=== PATIENT | male | born 1970 | race Caucasian/White ===

== ENCOUNTER 2024-05-06 15:16 | Observation (INO) ==
[2024-05-06 17:18] VITALS: BMI 53.6
[2024-05-06 17:31] LABS: BASOPHILS # (AUTO) 0.1 X10^3/uL (0.0-0.1); BASOPHILS % (AUTO) 1.4 % (0.2-1.0); EOSINOPHILS # (AUTO) 0.1 x10^3/uL (0.0-0.2); EOSINOPHILS % (AUTO) 0.7 % (0.9-2.9); HEMATOCRIT 39.4 % (42.0-54.0); HEMOGLOBIN 13.4 g/dL (13.5-18.0); LYMPHOCYTES # (AUTO) 2.4 X10^3/uL (1.3-2.9); LYMPHOCYTES % (AUTO) 25.9 % (21.0-51.0); MEAN CORPUSCULAR HEMOGLOBIN 35.1 pg (27.0-34.0); MEAN CORPUSCULAR HGB CONC 33.9 g/dL (33.0-35.0); MEAN CORPUSCULAR VOLUME 103.5 fL (80.0-100.0); MEAN PLATELET VOLUME 9.9 fL (7.4-11.0); MONOCYTES # (AUTO) 1.1 x10^3/uL (0.3-0.8); MONOCYTES % (AUTO) 12.3 % (0.0-13.0); NEUTROPHILS # (AUTO) 5.5 x10^3/uL (2.2-4.8); NEUTROPHILS % (AUTO) 59.7 % (42.0-75.0); PLATELET COUNT 202 X10^3/uL (150.0-450.0); RED BLOOD COUNT 3.81 X10^6/uL (4.7-6.0); RED CELL DISTRIBUTION WIDTH 15.4 % (11.6-16.5); WHITE BLOOD COUNT 9.2 X10^3/uL (3.6-10.0)
[2024-05-06 17:32] LABS: ALANINE AMINOTRANSFERASE 34 Units/L (12-78); ALBUMIN 2.4 g/dL (3.4-5.0); ALKALINE PHOSPHATASE 122 Units/L (46-116); ASPARTATE AMINO TRANSFERASE 47 Units/L (15-37); BLOOD UREA NITROGEN 11 mg/dL (7-18); CARBON DIOXIDE 26.3 mmol/L (21-32); CHLORIDE 107 mmol/L (98-107); COR NA(FOR HYPERGLY) 143 mmol/L (136-145); CREATININE 1.42 mg/dL (0.70-1.30); GLUCOSE 121 mg/dL (65-99); SODIUM 142 mmol/L (136-145); TOTAL PROTEIN 6.5 g/dL (6.4-8.2); eGFR NON BLACK RACES 56 (>60)
[2024-05-06] MEDS: LR 1,000 ML IV 1,000 ML IV SCH (17:34)
[2024-05-06 17:35] LABS: CALCIUM 5.7 mg/dL (8.5-10.1)
--- NOTE | 2024-05-06 22:49 | EKG ---
Test Reason : preop Blood Pressure : */* mmHG Vent. Rate : 80 BPM Atrial Rate : 80 BPM P-R Int : 142 ms QRS Dur : 74 ms QT Int : 418 ms P-R-T Axes : 59 77 80 degrees QTc Int : 482 ms Normal sinus rhythm Low voltage QRS Prolonged QT Abnormal ECG No previous ECGs available Confirmed by Evan Jha MD ([id number]) on 05/07/2024 6:37:25 AM Referred By: Confirmed By: Evan Jha MD
--- NOTE | 2024-05-07 07:18 | DR.CONSULT ---
CONSULT Consultation for Day of: Date: 05/07/24 Chief Complaint Chief Complaint: Lacerations, Left toes Allergies Allergies Allergy/AdvReac Type Severity Reaction Status Date / Time No Known Drug Allergies Allergy Verified 05/06/24 17:51 History of Present Illness History of Present Illness: This is a 53 year old non diabetic patient who has a history of partial 5th metatarsal resection to left foot. He presented to Dr. Friend's office yesterday after lacerating the plantar aspect of the digits 2, 3, and 4. His foot was very violaceous and cold presenting as a vasospastic response to the lacerations and clinically appearing he had no blood flow to the left foot digit lacerations. CFT was slightly decreased. Ther was concern for arterial issue and Dr. Vergara was informed who admitted the patient. There was also some concern for infection and possible osteomyelitis. An MRI was ordered but has not been obtained this AM as it needs precerted. His WBC is 9.2. He has not been started on IV antibiotics. Past Surgical History Surgical History: Ortho Surgery Family History Family Medical History: Cancer, [place] and Hypertension Social History Does patient currently use any type of tobacco product: Yes Type of Tobacco Use: Cigarettes How many years tobacco product used: 20 Does any household member use tobacco: No Alcohol Use: Occasionally Drug Use: None Medications Home Medications: No Known Drug Allergies Allergy (Verified 05/06/24 17:51) CONTINUE taking the following medications losartan 100 mg tablet 100 mg PO DAILY 05/06/24 [History] Review of Systems Constitutional: See HPI Physical Exam Vital Signs: Vital Signs Temperature 97.8 F Temperature 97.8 F Pulse Rate [Brachial] 86 Pulse Rate [Brachial] 84 Respiratory Rate 20 Respiratory Rate 21 Blood Pressure [Right Arm] 144/71 Blood Pressure [Right Arm] 126/63 O2 Sat by Pulse Oximetry 97 O2 Sat by Pulse Oximetry 96 Cardiovascular: Other (Left foot: DP and PT pulses are 1/4. Skin is atrophic. No hair growth present. ) Skin: Wound (Laceration down to tendon on plantar aspect of digits 2, 3, and 4 of the left foot. There is a small area of fibrotic appear tissue that appears necrotic in each digit. The CFT appears to be back to normal when compared to clinic notes from yesterday. The violaceous color of the foot has decreased.) Musculoskeletal: Foot (Left foot: patient is slightly able to flex digits 2, 3, and 4 on the left. History of amputation of the 5th metatarsal on the left foot. ) Plan (1) Osteomyelitis of ankle or foot, left, acute: Status: Acute Plan: - Patient has PVD and is being treated by Jai. There is plan for intervention tomorrow. - He is currently NPO. - IV antibiotics have not been started. Patient is stable enough, do not start antibiotics. Possible surgery this PM consisting of washout with closure vs amputation. - This will be dependent on the MRI read which is currently in the process of being pre-certified and then will be obtained. - Discussed with patient this morning about his vascular disease and the intervention with Jai tomorrow. Discussed surgery later today consisting of washout and closure vs amputation which is dependent on MRI read. - He was understanding and in agreement.
--- NOTE | 2024-05-07 07:48 | RAD ---
EXAM: Portable chest HISTORY: Preop vascular surgery COMPARISON: None available FINDINGS: Heart is enlarged. No congestive heart failure is noted. No acute alveolar infiltrates or pleural effusions are identified. Bony thorax is unremarkable. IMPRESSION: Cardiomegaly without congestive heart failure No acute infiltrates THIS IS AN ELECTRONICALLY VERIFIED FINAL REPORT 05/07/2024 7:45 AM - Electronically signed by Raul Porter MD
--- NOTE | 2024-05-07 08:13 | CT ---
EXAM:CTA AORTA WITH RUNOFFHISTORY:pre op vascular surgery ;COMPARISON:NoneTECHNIQUE:Multiple CT axial images of the abdomen pelvis and lower extremity runoff were obtained before and after using IV contrast. 3D reconstructions utilizing axial MIPS imaging was performed and reviewed. Dose reduction techniques including Automated Exposure Control (AEC) and adjustment of mA and kV were utilized.Stenoses are measured using NASCET criteria. Normal is no stenosis. Mild is less than 50% stenosis. Moderate is 50-69% stenosis. Severe is 70% to 99% stenosis. Total occlusion is no detectable patent lumen.FINDINGS:Without contrast: Very minimal calcified atherosclerotic plaque is present in the distal aorta and iliac arteries. Diffuse decreased density of the liver is compatible with hepatic steatosis. Fixation hardware is present in the left lower extremity.With contrast: The aorta has a normal caliber with no aneurysm, dissection, or stenosis. All 3 mesenteric vessels are patent. There is a single patent artery to each kidney. Common iliac and external iliac arteries are widely patent. Both internal iliac arteries are patent.Left leg: There is no significant femoropopliteal artery occlusion. There is a high origin of the anterior tibial artery from the popliteal artery above the knee joint surface. Anterior tibial and posterior tibial arteries extend to the foot. Peroneal artery is never identified.Right leg: Anterior tibial and posterior tibial arteries are patent extending into the foot. The peroneal artery is very tiny and I do not see it below the proximal calf.Body: Lung bases are clear. The liver is large measuring over 26 cm. The spleen is large measuring 14.6 cm. Adrenal glands, pancreas, kidneys, urinary bladder, and bowel loops are unremarkable. Probable postsurgical scarring in the deep subcutaneous tissue of the anterior abdominal wall.IMPRESSION:1. Mild atherosclerosis without significant occlusion2. Two-vessel runoff to each foot3. High origin left anterior tibial artery4. Hepatomegaly with steatosis5. SplenomegalyTHIS IS AN ELECTRONICALLY VERIFIED FINAL REPORT05/07/2024 8:10 AM - Electronically signed by Justin Burgess MD
[2024-05-07] MEDS: OMNIPAQUE 350 mg/mL 50 mL BTL 50 ML ONE (09:37)
[2024-05-07] MEDS: OMNIPAQUE 350 mg/mL 100 mL BTL 100 ML ONE (09:37)
[2024-05-07] MEDS: NS 250 ML IV 25 ML IV PRN (10:10)
[2024-05-07] MEDS: ZOSYN VIAL 3.375 GRAMS 3.375 G in NS 100 ML IV 100 ML IV SCH (10:10)
[2024-05-07] MEDS: XYLOCAINE 1% and EPINEPHRINE 1:100,000 ONE (12:59)
--- NOTE | 2024-05-07 13:45 | DR.H&P ---
H&P History & Physical for Day of: H&P Date: 05/06/24 Chief Complaint Chief Complaint: Painful left foot after injury with redness and swelling History of Present Illness History of Present Illness: Morbidly obese 53-year-old male with presentation to Dr. Friend of podiatry with a laceration type wounds to the base of the plantar aspect of the left third and fourth toes. Fifth toe on that side has been amputated. Patient has significant tobacco abuse history greater than 1 pack of cigarettes per day for over 30 years. Patient also with history of significant injury to the left leg in the past requiring open duction internal fixation. Past Medical History Past Medical History: GERD and Hypertension Past Surgical History Surgical History: Ortho Surgery (Open reduction internal fixation of the left femur in the past) Family History Family Medical History: Cancer, [place] and Hypertension Social History Does patient currently use any type of tobacco product: Yes Type of Tobacco Use: Cigarettes How many years tobacco product used: 35 Does any household member use tobacco: No Alcohol Use: DAILY (Nearly 1 pint of alcohol per day) Drug Use: None Medications Home Medications: Home Medications Medication Instructions Recorded Confirmed Type omeprazole 20 mg tablet,delayed 20 mg PO DAILY 05/28/19 05/06/24 History release pregabalin 300 mg capsule 300 mg PO BID 05/28/19 05/06/24 History losartan 100 mg tablet 100 mg PO DAILY 05/06/24 05/06/24 History Allergies Allergies Allergy/AdvReac Type Severity Reaction Status Date / Time No Known Drug Allergies Allergy Verified 05/06/24 17:51 Labs 05/06/24 17:10 05/06/24 17:10 Labs: Laboratory WBC 9.2 X10^3/uL (3.6-10.0) 05/06/24 17:10 RBC 3.81 X10^6/uL (4.7-6.0) L 05/06/24 17:10 Hgb 13.4 g/dL (13.5-18.0) L 05/06/24 17:10 Hct 39.4 % (42.0-54.0) L 05/06/24 17:10 MCV 103.5 fL (80.0-100.0) H 05/06/24 17:10 MCH 35.1 pg (27.0-34.0) H 05/06/24 17:10 MCHC 33.9 g/dL (33.0-35.0) 05/06/24 17:10 RDW 15.4 % (11.6-16.5) 05/06/24 17:10 Plt Count 202 X10^3/uL (150.0-450.0) 05/06/24 17:10 MPV 9.9 fL (7.4-11.0) 05/06/24 17:10 Neut % (Auto) 59.7 % (42.0-75.0) 05/06/24 17:10 Lymph % (Auto) 25.9 % (21.0-51.0) 05/06/24 17:10 [place] % (Auto) 12.3 % (0.0-13.0) 05/06/24 17:10 Eos % (Auto) 0.7 % (0.9-2.9) L 05/06/24 17:10 Baso % (Auto) 1.4 % (0.2-1.0) H 05/06/24 17:10 Neut # (Auto) 5.5 x10^3/uL (2.2-4.8) H 05/06/24 17:10 Lymph # (Auto) 2.4 X10^3/uL (1.3-2.9) 05/06/24 17:10 [place] # (Auto) 1.1 x10^3/uL (0.3-0.8) H 05/06/24 17:10 Eos # (Auto) 0.1 x10^3/uL (0.0-0.2) 05/06/24 17:10 Baso # (Auto) 0.1 X10^3/uL (0.0-0.1) 05/06/24 17:10 Absolute Nucleated RBC 0.3 /100WBC 05/06/24 17:10 Sodium 142 mmol/L (136-145) 05/06/24 17:10 Corrected Sodium 143 mmol/L (136-145) 05/06/24 17:10 Potassium 4.0 mmol/L (3.5-5.1) 05/06/24 17:10 Chloride 107 mmol/L (98-107) 05/06/24 17:10 Carbon Dioxide 26.3 mmol/L (21-32) 05/06/24 17:10 BUN 11 mg/dL (7-18) 05/06/24 17:10 Creatinine 1.42 mg/dL (0.70-1.30) H 05/06/24 17:10 Est GFR (MDRD) Af Amer > 60 (>60) 05/06/24 17:10 Est GFR (MDRD) Non-Af 56 (>60) L 05/06/24 17:10 Glucose 121 mg/dL (65-99) H 05/06/24 17:10 Calcium 5.7 mg/dL (8.5-10.1) L* 05/06/24 17:10 Corrected Calcium 7.0 mg/dL (8.5-10.1) L 05/06/24 17:10 Total Bilirubin 0.70 mg/dL (0.2-1.0) 05/06/24 17:10 AST 47 Units/L (15-37) H 05/06/24 17:10 ALT 34 Units/L (12-78) 05/06/24 17:10 Alkaline Phosphatase 122 Units/L (46-116) H 05/06/24 17:10 Total Protein 6.5 g/dL (6.4-8.2) 05/06/24 17:10 Albumin 2.4 g/dL (3.4-5.0) L 05/06/24 17:10 Globulin 4.1 g/dL (2.5-4.5) 05/06/24 17:10 Albumin/Globulin Ratio 0.6 Ratio (1.1-2.1) L 05/06/24 17:10 Review of Systems Constitutional: See HPI Eyes: No Symptoms Reported ENT: No Symptoms Reported Respiratory: No Symptoms Reported Cardiovascular: See HPI Gastrointestinal: No Symptoms Reported Genitourinary: No Symptoms Reported Musculoskeletal: See HPI Skin: See HPI Neurological: No Symptoms Reported Physical Exam Vital Signs: Vital Signs Temperature 98.1 F Temperature 98.3 F Pulse Rate [Brachial] 74 Pulse Rate [Brachial] 76 Respiratory Rate 20 Respiratory Rate 20 Blood Pressure [Right Arm] 131/73 Blood Pressure [Right Arm] 127/67 O2 Sat by Pulse Oximetry 95 O2 Sat by Pulse Oximetry 95 Oriented: Normal, Time, Person and Place Eyes: Normal Ear: Normal Nose: Normal Throat: Normal Respiratory: Clear Throughout Cardiovascular: Normal : Normal Auscultation: Bowel Sounds: Normal Palpation: Normal Tenderness: Normal Skin: Other (Laceration type wounds to the base of the plantar aspect of the third and fourth toes with surrounding cellulitis) Musculoskeletal: Left (Left leg history of open reduction internal fixation.) Assessment/Plan (1) Osteomyelitis of ankle or foot, left, acute: Status: Acute Plan: Dr. Friend is planning MRI of the left foot, IV antibiotics (2) Atherosclerosis of [place] arteries of extremities with rest pain, left leg: Status: Acute Plan: CTA and runoff (3) Essential (primary) hypertension: Status: Acute Plan: home medications (4) Acid reflux: Status: Acute Plan: home medications (5) Tobacco abuse: Status: Acute Plan: nicotine patches (6) Alcohol abuse: Status: Acute Plan: CIQA protocol
[2024-05-07] MEDS: BETADINE SOLN ONE (14:45)
[2024-05-07] MEDS: LR 1,000 ML IV 1,000 ML IV ONE (14:45)
[2024-05-07] MEDS: MARCAINE 0.25% INJ ONE (14:53)
--- NOTE | 2024-05-07 16:36 | NOTE.SOAP ---
Soap Note Note for Day of Date of Exam: 05/07/24 Subjective Data Subjective Data: Please history physical details. Patient with cellulitis possible osteomyelitis of the left foot. Had CT angiogram which showed no significant stenosis of the major vessels. Peroneal vessels are poor bilaterally but has two-vessel runoff to each foot. No obvious arterial intervention is necessary. MRI is performed by Dr. Brambila and they will address his foot accordingly. Objective Data Temperature: 98.3 F Pulse Rate: 84 Respiratory Rate: 16 Blood Pressure: 150/75 O2 Sat by Pulse Oximetry: 98 Objective Data: as above Assessment Assessment: Cellulitis, possible osteomyelitis left foot. No obvious arterial intervention required. Plan Plan: Dr. Friend to debride the wound in the operating room today
[2024-05-07] MEDS: DILAUDID INJ IVP PRN (20:04)
[2024-05-08 08:27] VITALS: BP 137/61; PULSE 90; RESP 18; TEMP 98.6; O2SAT 96
--- NOTE | 2024-05-08 10:21 | W.DIS.FURT ---
Summary of Discharge Discharge Summary of Date Date of Exam: 05/08/24 Admission Date Date of Admission: 05/06/24 Admission Diagnosis Hospital Course: 53 yo male, diabetic , heavy smoker with pain and wounds to left plantar foot with question of ischemia. Admitted , placed on IV antibiotics . Could not palpate arteries left ankle due to swelling and chronic venous stasis. CTA showed no obvious arterial stenosis. Dr. Friend debrided the left foot and he will be discharged home on PO antiobiotics and Percocet in addition to his usual pain medications. F/U me an d Dr Friend 1 week. Vital Signs: Vital Signs (72 hours) 05/07/24 16:36 05/06/24 16:45 05/06/24 17:55 Temperature 98.3 F 98.1 F Pulse Rate 84 Pulse Rate [Brachial] 93 H Respiratory Rate 16 22 Blood Pressure 150/75 Blood Pressure [Right Arm] 131/59 O2 Sat by Pulse Oximetry 98 94 L Oxygen Delivery Method Room Air Room Air Oxygen Flow Rate 2 FIO2% 28 05/06/24 20:00 05/07/24 00:00 05/06/24 20:25 Temperature 97.8 F 97.8 F Pulse Rate Pulse Rate [Brachial] 89 84 Respiratory Rate 20 21 Blood Pressure Blood Pressure [Right Arm] 116/62 126/63 O2 Sat by Pulse Oximetry 99 96 Oxygen Delivery Method Room Air CPAP Nasal Cannula Oxygen Flow Rate 2 FIO2% 28 05/07/24 04:00 05/06/24 22:00 05/07/24 07:57 Temperature 97.8 F 98.3 F Pulse Rate Pulse Rate [Brachial] 86 76 Respiratory Rate 20 20 Blood Pressure Blood Pressure [Right Arm] 144/71 127/67 O2 Sat by Pulse Oximetry 97 95 Oxygen Delivery Method CPAP Room Air Oxygen Flow Rate FIO2% 281 05/07/24 12:00 05/07/24 14:48 05/07/24 14:53 Temperature 98.1 F Pulse Rate 81 78 Pulse Rate [Brachial] 74 Respiratory Rate 20 16 16 Blood Pressure 120/60 157/90 Blood Pressure [Right Arm] 131/73 O2 Sat by Pulse Oximetry 95 98 98 Oxygen Delivery Method Room Air Room Air Room Air Oxygen Flow Rate FIO2% 05/07/24 14:58 05/07/24 15:11 05/07/24 15:26 Temperature 97.5 F L 97.5 F L Pulse Rate 84 Pulse Rate [Brachial] 80 90 Respiratory Rate 16 20 20 Blood Pressure 150/75 Blood Pressure [Right Arm] 128/95 141/85 O2 Sat by Pulse Oximetry 98 97 99 Oxygen Delivery Method Room Air Oxygen Flow Rate FIO2% 05/07/24 15:41 05/07/24 15:56 05/07/24 16:11 Temperature 97.7 F 97.5 F L 97.7 F Pulse Rate Pulse Rate [Brachial] 88 88 85 Respiratory Rate 18 18 20 Blood Pressure Blood Pressure [Right Arm] 139/87 140/85 129/89 O2 Sat by Pulse Oximetry 98 99 100 Oxygen Delivery Method Oxygen Flow Rate FIO2% 05/07/24 20:04 05/07/24 20:00 05/07/24 20:34 Temperature 97.9 F Pulse Rate Pulse Rate [Brachial] 87 Respiratory Rate 18 22 18 Blood Pressure Blood Pressure [Right Arm] 124/75 O2 Sat by Pulse Oximetry 95 Oxygen Delivery Method Room Air Oxygen Flow Rate FIO2% 05/07/24 20:40 05/08/24 00:00 05/08/24 04:00 Temperature 98.1 F 97.8 F Pulse Rate Pulse Rate [Brachial] 82 84 Respiratory Rate 18 22 Blood Pressure Blood Pressure [Right Arm] 106/55 108/55 O2 Sat by Pulse Oximetry 97 97 Oxygen Delivery Method Nasal Cannula Room Air Room Air Oxygen Flow Rate 2 FIO2% 28 05/08/24 08:00 05/08/24 09:12 05/08/24 07:00 Temperature 98.6 F Pulse Rate Pulse Rate [Brachial] 90 Respiratory Rate 18 18 Blood Pressure Blood Pressure [Right Arm] 137/61 O2 Sat by Pulse Oximetry 96 Oxygen Delivery Method Room Air Room Air Oxygen Flow Rate FIO2% Labs: Laboratory Last Values WBC 9.2 X10^3/uL (3.6-10.0) 05/06/24 17:10 RBC 3.81 X10^6/uL (4.7-6.0) L 05/06/24 17:10 Hgb 13.4 g/dL (13.5-18.0) L 05/06/24 17:10 Hct 39.4 % (42.0-54.0) L 05/06/24 17:10 MCV 103.5 fL (80.0-100.0) H 05/06/24 17:10 MCH 35.1 pg (27.0-34.0) H 05/06/24 17:10 MCHC 33.9 g/dL (33.0-35.0) 05/06/24 17:10 RDW 15.4 % (11.6-16.5) 05/06/24 17:10 Plt Count 202 X10^3/uL (150.0-450.0) 05/06/24 17:10 MPV 9.9 fL (7.4-11.0) 05/06/24 17:10 Neut % (Auto) 59.7 % (42.0-75.0) 05/06/24 17:10 Lymph % (Auto) 25.9 % (21.0-51.0) 05/06/24 17:10 [place] % (Auto) 12.3 % (0.0-13.0) 05/06/24 17:10 Eos % (Auto) 0.7 % (0.9-2.9) L 05/06/24 17:10 Baso % (Auto) 1.4 % (0.2-1.0) H 05/06/24 17:10 Neut # (Auto) 5.5 x10^3/uL (2.2-4.8) H 05/06/24 17:10 Lymph # (Auto) 2.4 X10^3/uL (1.3-2.9) 05/06/24 17:10 [place] # (Auto) 1.1 x10^3/uL (0.3-0.8) H 05/06/24 17:10 Eos # (Auto) 0.1 x10^3/uL (0.0-0.2) 05/06/24 17:10 Baso # (Auto) 0.1 X10^3/uL (0.0-0.1) 05/06/24 17:10 Absolute Nucleated RBC 0.3 /100WBC 05/06/24 17:10 Sodium 142 mmol/L (136-145) 05/06/24 17:10 Corrected Sodium 143 mmol/L (136-145) 05/06/24 17:10 Potassium 4.0 mmol/L (3.5-5.1) 05/06/24 17:10 Chloride 107 mmol/L (98-107) 05/06/24 17:10 Carbon Dioxide 26.3 mmol/L (21-32) 05/06/24 17:10 BUN 11 mg/dL (7-18) 05/06/24 17:10 Creatinine 1.42 mg/dL (0.70-1.30) H 05/06/24 17:10 Est GFR (MDRD) Af Amer > 60 (>60) 05/06/24 17:10 Est GFR (MDRD) Non-Af 56 (>60) L 05/06/24 17:10 Glucose 121 mg/dL (65-99) H 05/06/24 17:10 Calcium 5.7 mg/dL (8.5-10.1) L* 05/06/24 17:10 Corrected Calcium 7.0 mg/dL (8.5-10.1) L 05/06/24 17:10 Total Bilirubin 0.70 mg/dL (0.2-1.0) 05/06/24 17:10 AST 47 Units/L (15-37) H 05/06/24 17:10 ALT 34 Units/L (12-78) 05/06/24 17:10 Alkaline Phosphatase 122 Units/L (46-116) H 05/06/24 17:10 Total Protein 6.5 g/dL (6.4-8.2) 05/06/24 17:10 Albumin 2.4 g/dL (3.4-5.0) L 05/06/24 17:10 Globulin 4.1 g/dL (2.5-4.5) 05/06/24 17:10 Albumin/Globulin Ratio 0.6 Ratio (1.1-2.1) L 05/06/24 17:10 Reason For Visit: ISHEMIC LEFT LEG Discharge Date Discharge Date: 05/08/24 Discharge Diagnosis All Active Problems (Updated 05/07/24 @ 13:42 by Rogelio Vergara) Alcohol abuse (Acute) Tobacco abuse (Acute) Acid reflux (Acute) Essential (primary) hypertension (Acute) Atherosclerosis of [place] arteries of extremities with rest pain, left leg (Acu te) Osteomyelitis of ankle or foot, left, acute (Acute) Plan of Treatment: Continue with present treatment and follow up plan. Pt is to keep follow up appointment as instructed and take medications as ordered. Discharge Medications Discharge Medications: No Known Drug Allergies Allergy (Verified 05/06/24 17:51) CONTINUE taking the following medications losartan 100 mg tablet 100 mg PO DAILY 05/06/24 [History] Discharge Plan Discharge Plan Hospital Course: 53 yo male, diabetic , heavy smoker with pain and wounds to left plantar foot with question of ischemia. Admitted , placed on IV antibiotics . Could not palpate arteries left ankle due to swelling and chronic venous stasis. CTA showed no obvious arterial stenosis. Dr. Friend debrided the left foot and he will be discharged home on PO antiobiotics and Percocet in addition to his usual pain medications. F/U me an d Dr Friend 1 week. Patient Disposition: HOME, SELF-CARE Condition: Stable Health Concerns: Post Hospitalization: new medications and changes needed to prevent readmission or further decline. Pt educated and given instructions on all concerns. Plan of Treatment: Continue with present treatment and follow up plan. Pt is to keep follow up appointment as instructed and take medications as ordered. Prescription drug monitoring program results: PDMP reviewed and no concerns identified Prescriptions: New clindamycin HCl 150 mg capsule 150 mg PO TID Qty: 30 0RF oxycodone-acetaminophen [Percocet] 5-325 mg tablet 1 tab PO Q6H MDD 4 PRNQty: 30 0RF Continued losartan 100 mg Tablet 100 mg PO DAILY pregabalin 300 mg Capsule 300 mg PO BID omeprazole 20 mg Tablet,Delayed Release (Dr/Ec) 20 mg PO DAILY Orders to Discharge Patient Discharge Orders: Discharge (Routine); Ordered 05/08/24 Ordered By: Rogelio Vergara Follow ups/Referrals Follow ups/Referrals: CB ESPINOZA [Primary Care Provider] - 1 WEEK Instructions Stand Alone Forms: Excuse From Work or School, Find Help Web Site, Post Hospital Follow Up Care
--- NOTE | 2024-05-14 09:00 | MRI ---
EXAM:MRI left foot without IV contrastHISTORY:critical ischemia left foot. cut under toes of left foot;COMPARISON:CTA runoff dated 05/06/2024TECHNIQUE:Multi planar MRI series obtained of the left foot without IV contrast.FINDINGS:Toes and the distal foot are partially obscured by external artifact.MUSCLES, TENDONS, AND SOFT TISSUES:Diffuse foot muscle atrophy. No evidence of abscess or fluid collection.BONES/JOINTS:Postsurgical changes from prior partial 4th ray amputation through the mid 4th metatarsal and 5th ray amputation at the 5th tarsometatarsal joint with surrounding susceptibility. No focal abnormal marrow signal or evidence of osteomyelitis. Advanced hindfoot and ankle neuropathic arthropathy with acute to subacute mildly displaced medial navicular fracture. Moderate to severe 1st metatarsophalangeal and interphalangeal osteoarthritis.IMPRESSION:1. Technically difficult study due to external artifact. No evidence of osteomyelitis. Postsurgical changes from prior partial 4th and 5th ray amputation.2. Advanced ankle and hindfoot neuropathic arthropathy with acute to subacute mildly displaced navicular fracture.THIS IS AN ELECTRONICALLY VERIFIED FINAL REPORT05/07/2024 3:45 PM - Electronically signed by Nic Rasheed MD
== END 2024-05-08 11:00 | disposition home or self-care (01) ==
LOC: OBS → MED/SURG
PROVIDERS: ADMIT Surgery; ATTEND Surgery
PROC: DEBRIDE (2024-05-07 15:35)
DX: S91.115A Laceration without foreign body of left lesser toe(s) without damage to nail, initial encounter; X58.XXXA Exposure to other specified factors, initial encounter; E66.01 Morbid (severe) obesity due to excess calories; Z01.810 Encounter for preprocedural cardiovascular examination; K21.9 Gastro-esophageal reflux disease without esophagitis; M86.172 Other acute osteomyelitis, left ankle and foot; R16.2 Hepatomegaly with splenomegaly, not elsewhere classified; E11.65 Type 2 diabetes mellitus with hyperglycemia; I70.222 Atherosclerosis of native arteries of extremities with rest pain, left leg; M25.872 Other specified joint disorders, left ankle and foot; Z89.422 Acquired absence of other left toe(s); L03.032 Cellulitis of left toe; I10 Essential (primary) hypertension; Z68.43 Body mass index [BMI] 50.0-59.9, adult; F10.10 Alcohol abuse, uncomplicated; Z72.0 Tobacco use; E11.40 Type 2 diabetes mellitus with diabetic neuropathy, unspecified; B95.1 Streptococcus, group B, as the cause of diseases classified elsewhere; R94.31 Abnormal electrocardiogram [ECG] [EKG]

== ENCOUNTER 2024-09-10 11:15 | Observation (INO) ==
[2024-09-10] MEDS: NOZIN NASAL SANITIZER TP ONE (11:29)
[2024-09-10] MEDS: LR 1,000 ML IV 1,000 ML IV ONE ×2 (11:31→16:16)
[2024-09-10 12:06] VITALS: BMI 54.9
[2024-09-10] MEDS: LR IV PRN (13:00)
[2024-09-10] MEDS: BYFAVO INJ IVP ONE (13:05)
[2024-09-10] MEDS: NAROPIN 0.75% EPI ONE (13:05)
[2024-09-10] MEDS: FENTANYL VIAL INJ 100 mcg ONE ×2 (13:16→15:43)
[2024-09-10] MEDS: DIPRIVAN VIAL 20 ML ONE ×5 (13:17→16:33)
[2024-09-10] MEDS: DECADRON INJ ONE (14:26)
[2024-09-10] MEDS: ZOFRAN INJ 4 MG VIAL ONE ×2 (14:26→16:25)
[2024-09-10] MEDS: REGLAN INJ 10 MG VIAL ONE (14:26)
[2024-09-10] MEDS: PEPCID 20 MG VIAL ONE (14:27)
[2024-09-10] MEDS: NS 100 ML IV 100 ML ONE (14:30)
[2024-09-10] MEDS: ANCEF VIAL 1 GRAM ONE (14:30)
[2024-09-10] MEDS ORDERED: ULTANE GAS IN ONE (14:34)
[2024-09-10] MEDS ORDERED: KETAMINE HCL ONE (14:34)
[2024-09-10] MEDS: ANCEF VIAL 1 GRAM IV PRN (14:34)
[2024-09-10] MEDS ORDERED: XYLOCAINE 2 % (PLAIN) ONE (14:34)
[2024-09-10] MEDS: PEPCID 20 MG VIAL IVP PRN (14:37)
[2024-09-10] MEDS: REGLAN INJ 10 MG VIAL IVP PRN (14:39)
[2024-09-10] MEDS: XYLOCAINE 2 % (PLAIN) INJ PRN (14:41)
[2024-09-10] MEDS: PRECEDEX INJ VIAL IVP PRN (14:42)
[2024-09-10] MEDS: MARCAINE 0.25% INJ ONE (14:54)
[2024-09-10] MEDS: OFIRMEV IV 1000 MG VIAL 1,000 MG/100 ML VIAL IV ONE (14:54)
[2024-09-10] MEDS: DECADRON INJ IVP PRN (14:55)
[2024-09-10] MEDS: OFIRMEV IV 1000 MG VIAL 1,000 MG/100 ML VIAL IV PRN (14:57)
[2024-09-10] MEDS: BYFAVO INJ IVP PRN (15:02)
[2024-09-10] MEDS: EPHEDRINE SULFATE INJ ONE (15:36)
[2024-09-10] MEDS: EPHEDRINE SULFATE INJ IVP PRN (15:40)
[2024-09-10] MEDS: KETAMINE HCL IV PRN (15:42)
[2024-09-10] MEDS: FENTANYL VIAL INJ 100 mcg IVP PRN (16:13)
[2024-09-10] MEDS: DILAUDID INJ ONE (16:20)
[2024-09-10] MEDS: ZOFRAN INJ 4 MG VIAL IVP PRN (16:31)
[2024-09-10] MEDS: DILAUDID INJ IVP PRN (16:41)
[2024-09-10] MEDS ORDERED: TYLENOL 325 MG TAB PO PRN (17:14)
[2024-09-10] MEDS ORDERED: ZOFRAN INJ 4 MG VIAL IVP PRN (17:14)
[2024-09-10] MEDS: NS 1,000 ML IV 1,000 ML IV SCH (18:22)
[2024-09-10] MEDS: COLACE CAP 100 MG PO SCH (21:29)
--- NOTE | 2024-09-11 07:08 | NOTE.SOAP ---
Soap Note Note for Day of Date of Exam: 09/11/24 Subjective Data Subjective Data: POD#1 tibia calcaneal fusion, left. Denies any nausea, vomiting, fevers, chills, shortness of breath, chest pain, or profuse sweating. denies any major pain in the left leg. Objective Data Objective Data: Left Lower Extremity Exam: Dressing taken down. Examined incisions no sign of hematoma underneath any incision. Sutures in place. No signs of arterial bleed either from the dorsal anterolateral incision. Redressed with 4x4s, ABD, Webroll, Splint, HERMAN. Assessment Assessment: POD#1 Tibiacalcaneal fusion, left Plan Plan: - NWB to LLE. - Rx in chart. - Labs are stable. VSS. - He is planning on going to [place] waiting on placement for that. - Keep dressing clean, dry, and intact. - We will change dressing again when at [facility].
[2024-09-11] MEDS: LOVENOX INJ 40 MG SYR SC SCH (08:05)
[2024-09-11] MEDS: PERCOCET TAB 5/325 MG PO PRN (08:10)
[2024-09-11 10:17] LABS: BLOOD UREA NITROGEN 16 mg/dL (7-18); CALCIUM 9.1 mg/dL (8.5-10.1); CARBON DIOXIDE 29.3 mmol/L (21-32); CHLORIDE 103 mmol/L (98-107); COR NA(FOR HYPERGLY) 142 mmol/L (136-145); GLUCOSE 180 mg/dL (65-99); POTASSIUM 3.8 mmol/L (3.5-5.1); SODIUM 140 mmol/L (136-145); eGFR NON BLACK RACES > 60 (>60)
[2024-09-11] MEDS ORDERED: VITAMIN D (1.25MG) PO SCH (10:30)
[2024-09-11] MEDS: PriLOSEC PO SCH (11:01)
[2024-09-11] MEDS: BENICAR PO SCH (11:01)
[2024-09-11] MEDS: TOPROL XL PO SCH (11:01)
[2024-09-11] MEDS: LYRICA CAP 150 mg PO SCH (21:23)
[2024-09-11] MEDS: RESTORIL CAP 15 MG PO SCH (21:23)
[2024-09-11] MEDS: LIPITOR TAB 20 MG PO SCH (21:23)
[2024-09-11] MEDS: ROBAXIN PO PRN (21:25)
[2024-09-12 04:56] VITALS: O2SAT 95
[2024-09-12 05:34] LABS: BASOPHILS # (AUTO) 0.1 X10^3/uL (0.0-0.1); BASOPHILS % (AUTO) 0.5 % (0.2-1.0); EOSINOPHILS % (AUTO) 0.2 % (0.9-2.9); HEMATOCRIT 36.8 % (42.0-54.0); HEMOGLOBIN 12.4 g/dL (13.5-18.0); LYMPHOCYTES # (AUTO) 3.2 X10^3/uL (1.3-2.9); LYMPHOCYTES % (AUTO) 20.8 % (21.0-51.0); MEAN CORPUSCULAR HEMOGLOBIN 28.3 pg (27.0-34.0); MEAN CORPUSCULAR HGB CONC 33.6 g/dL (33.0-35.0); MEAN CORPUSCULAR VOLUME 84.3 fL (80.0-100.0); MEAN PLATELET VOLUME 10.1 fL (7.4-11.0); MONOCYTES # (AUTO) 1.1 x10^3/uL (0.3-0.8); MONOCYTES % (AUTO) 7.3 % (0.0-13.0); NEUTROPHILS # (AUTO) 11.1 x10^3/uL (2.2-4.8); NEUTROPHILS % (AUTO) 71.2 % (42.0-75.0); PLATELET COUNT 204 X10^3/uL (150.0-450.0); RED BLOOD COUNT 4.37 X10^6/uL (4.7-6.0); RED CELL DISTRIBUTION WIDTH 13.9 % (11.6-16.5); WHITE BLOOD COUNT 15.5 X10^3/uL (3.6-10.0)
[2024-09-12] MEDS: STERILE WATER IRRIGATION IR ONE (06:49)
[2024-09-12 07:35] VITALS: BP 113/59; PULSE 55; RESP 18; TEMP 98.1
== END 2024-09-12 11:10 | disposition home health service (06) ==
LOC: MED/SURG 11:15 → SURG1 11:15 → MED/SURG 11:32
PROVIDERS: ADMIT Obstetrics & Gynecology Obstetrics; ATTEND Obstetrics & Gynecology Obstetrics
DX: M21.172 Varus deformity, not elsewhere classified, left ankle; I10 Essential (primary) hypertension; M21.542 Acquired clubfoot, left foot; M19.072 Primary osteoarthritis, left ankle and foot; M24.572 Contracture, left ankle; Z72.0 Tobacco use; R26.89 Other abnormalities of gait and mobility